=== PATIENT | female | born 2000 | race Caucasian/White ===

== ENCOUNTER 2024-03-18 23:46 | Emergency (ER) | payer OTHER ==
[2024-03-19 00:53] LABS: Anion Gap 8.9 mEq/L (5.0-15.0); Potassium 3.9 mEq/L (3.5-5.1); Troponin High Sensitivity 4.2 pg/mL (<58.9)
[2024-03-19 00:55] LABS: Absolute Basophils 0.1 K/uL (0-0.5); Absolute Eosinophils 0.5 K/uL (0-0.5); Absolute Lymphocytes (CBC) 1.7 K/uL (0.7-4.9); Absolute Neutrophil 6.5 K/uL (1.8-8.0); Basophils % 0.5 % (0-1.3); Hematocrit 38.5 % (36.0-45.0); Hemoglobin 12.9 g/dL (12.0-15.0); Lymphocytes % 17.9 % (15.3-44.8); MCH 29.1 pg (27.0-35.0); MCHC 33.6 g/dL (32.0-36.0); MCV 86.5 fL (80-100); MPV 7.6 fL (7.6-11.3); Monocytes % 9.9 % (3.3-12.3); Neutrophils % 66.7 % (41.7-73.7); Platelets 305 thou/uL (152-406); RBC Red Blood Cell Count 4.45 M/uL (3.86-4.86)
--- NOTE | 2024-03-19 01:15 | EDPHYS ---
Physician Documentation [facility] Name: Navin Valenzuela Age: 23 yrs Sex: Female : 2000 Arrival Date: 03/18/2024 Time: 23:46 Bed 8 Private MD: ED Physician Guillermo Moe HPI: 03/19 00:05 This 23 yrs old Female presents to ER via Ambulatory with complaints of Chest Pain - kb Hands tingling. 00:05 Pt is a 23 year old female who presents for chest pain that radiates to left shoulder kb and tingling to left hand that started 2 hours ago, as well as a sore throat that started 2 days ago. Denies shortness of breath, palpitation, fever, cough, congestion. . 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 - Infectious Disease History:: Denies. - Social history:: Smoking status: Reported history of juuling and/or vaping. ROS: 00:04 Constitutional: As per HPI kb Exam: 00:04 Constitutional: This is a well developed, well nourished patient who is awake, alert, kb and in no acute distress. Head/Face: Normocephalic, atraumatic. ENT: Moist Mucous membranes Cardiovascular: Regular rate Respiratory: Respirations even and unlabored. No increased work of breathing. Talking in full sentences Abdomen/GI: Soft, non-tender. No distention Skin: Warm, dry with normal turgor. Normal color. MS/ Extremity: Pulses equal, no cyanosis. Neurovascular intact. Full, normal range of motion. Neuro: Awake and alert, GCS 15, oriented to person, place, time, and situation. 00:04 ECG was reviewed by the Attending Physician. Vital Signs: 00:02 BP 127 / 81; Pulse 62; Resp 16; Temp 98(O); Pulse Ox 99% on R/A; Weight 72.57 kg; dd2 Height 5 ft. 3 in. ; Pain 4/10; 01:42 BP 121 / 77; Pulse 69; Resp 16; Temp 98.2; Pulse Ox 99% ; dd2 00:02 Body Mass Index 28.34 (72.57 kg, 160.02 cm) dd2 00:02 Pain Scale: Adult dd2 [place] Coma Score: 00:09 Eye Response: spontaneous(4). Motor Response: obeys commands(6). Verbal Response: dd2 oriented(5). Total: 15. MDM: 03/18 23:51 Medical Screening Exam initiated 03/19 00:05 Data reviewed: vital signs, nurses notes. kb 00:50 Transition of care: After a detail discussion of the patient's case, care is kb transferred to Guillermomayda Moe MD. 00:52 ED course: Patient signed out to me with pending lab work and radiographs. Patient ec2 arrives today with chest pain as well as concern for sore throat. . 01:04 ED course: Metabolic profile, CBC, troponin are all reassuring. Chest x-ray ec2 independently reviewed and interpreted by me, shows no acute thoracic process.. 01:14 ED course: Patient is positive for strep. Will start the patient antibiotics and ec2 discharged home. Turn precautions given.. 03/18 23:53 Order name: Basic Metabolic Panel; Complete Time: 01:04 kb 03/18 23:53 Order name: CBC with Diff; Complete Time: 01:04 kb 03/18 23:53 Order name: Troponin HS; Complete Time: 01:04 kb 03/18 23:58 Order name: Strep; Complete Time: 01:14 kb 03/18 23:53 Order name: XRAY Chest (1 view) kb 03/18 23:53 Order name: Cardiac monitoring; Complete Time: 00:16 kb 03/18 23:53 Order name: EKG - Nurse/Tech; Complete Time: 00:16 kb 03/18 23:53 Order name: IV Saline Lock; Complete Time: 00:16 kb 03/18 23:53 Order name: Labs collected and sent; Complete Time: 00:16 kb EC:04 Rate is 59 beats/min. Rhythm is regular. QRS [place] is Normal. UT interval is normal at kb 142 msec. QRS interval is normal at 76 msec. QT interval is normal at 407 msec. Administered Medications: 01:40 Drug: Amoxicillin-Clavulanate PO 875 mg PO once Route: PO; dd2 01:40 Follow up: Response: Medication Administered at Departure dd2 Disposition: 01:14 I agree with the assessment and plan of care. I reviewed the patient's care provided by 2 Advanced Practice Provider \T\ agree w/ the diagnosis \T\ care plan. I personally saw the pt \T\ performed a substantive portion of the visit, incldng all aspects of the (History/Exam/Medical Decision Making). Disposition Summary: 03/19/24 01:14 Discharge Ordered Notes: Location: Home ec2 Condition: Stable ec2 Diagnosis - Chest pain, unspecified ec2 - Streptococcal pharyngitis ec2 Followup: kb - With: Emergency Department - When: As needed - Reason: Worsening of condition Followup: kb - With: Private Physician - When: 2 - 3 days - Reason: Recheck today's complaints, Continuance of care, Re-evaluation by your physician Discharge Instructions: - Discharge Summary Sheet kb - Nonspecific Chest Pain, Adult, [id number] kb - Pharyngitis ec2 Forms: - Medication Reconciliation Form ec2 - Antibiotic Education ec2 - Prescription Opioid Use ec2 - Patient Portal Instructions ec2 - Leadership Thank You Letter ec2 Prescriptions: - Augmentin 875-125 mg Oral tablet - take 1 tablet ORAL route every 12 hours for 7 days; 14 tablet; Refills: 0, ec2 Product Selection Permitted Signatures: Dispatcher [employer] Elizabeth De Oliveira, WELLHEAD PUMPER-Karen MANN-Guillermo Gillette MD MD ec2 ART WALLACE RN RN dd2 Corrections: (The following items were deleted from the chart) 03/18 23:58 23:58 Group A Streptococcus Rapid [id number] ordered. ELOISE NAVAS
--- NOTE | 2024-03-19 01:15 | ER ---
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 Pt also c/o of hand tingling off and on x2 weeks and sore throat x2 days. Coronavirus screen: chills, sore throat. Ebola Screen: No symptoms or risks identified at this time. Initial Sepsis Screen: Does the patient meet any 2 criteria? No. Patient's initial sepsis screen is negative. Does the patient have a suspected source of infection? No. Patient's initial sepsis screen is negative. Risk Assessment: Do you want to hurt yourself or someone else? Patient reports no desire to harm self or others. Onset of symptoms is unknown. 00:02 Method Of Arrival: Ambulatory dd2 00:02 Acuity: MAYRA 3 dd2 Triage Assessment: 00:04 General: Appears in no apparent distress. Behavior is calm, cooperative, appropriate dd2 for age. Pain: Complains of pain in chest, throat Pain currently is 4 out of 10 on a pain scale. EENT: Throat is reddened Reports pain when swallowing. Neuro: No deficits noted. Level of Consciousness is awake, alert, obeys commands, Oriented to person, place, time, situation, Appropriate for age. 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 Rhythm is sinus rhythm. Respiratory: Airway is patent Respiratory effort is even, unlabored, Respiratory pattern is regular, symmetrical, Breath sounds are clear bilaterally. GI: No deficits noted. No signs and/or symptoms were reported involving the gastrointestinal system. Abdomen is non-distended, Abd is soft and non tender. : No deficits noted. No signs and/or symptoms were reported regarding the genitourinary system. Derm: No deficits noted. No signs and/or symptoms reported regarding the dermatologic system. Musculoskeletal: No deficits noted. No signs and/or symptoms reported regarding the musculoskeletal system. Circulation, motion, and sensation intact. Range of motion: intact in all extremities. 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 - Infectious Disease History:: Denies. - Social history:: Smoking status: Reported history of juuling and/or vaping. Screenin:09 [facility] ED Fall Risk Assessment (Adult) History of falling in the last 3 months, dd2 including since admission No falls in past 3 months (0 pts) Confusion or Disorientation No (0 pts) Intoxicated or Sedated No (0 pts) Impaired Gait No (0 pts) Mobility Assist Device Used No (0 pt) Altered Elimination No (0 pt) Score/Fall Risk Level 0 - 2 = Low Risk Oriented to surroundings, Maintained a safe environment, Educated pt \T\ family on fall prevention, incl call for assistance when getting out of bed, Assessed \T\ reinforced patient's understanding of fall precautions, Hourly rounding (assess needs \T\ fall precautionary measures) done. Abuse screen: Denies threats or abuse. Nutritional screening: No deficits noted. Tuberculosis screening: No symptoms or risk factors identified. Assessment: 00:09 Reassessment: SEE TRIAGE ASSESSMENT FOR FULL ASSESSMENT. dd2 01:44 Pain: Pain does not radiate. Pain began 2-3 days ago. dd2 Vital Signs: 00:02 BP 127 / 81; Pulse 62; Resp 16; Temp 98(O); Pulse Ox 99% on R/A; Weight 72.57 kg; dd2 Height 5 ft. 3 in. ; Pain 4/10; 01:42 BP 121 / 77; Pulse 69; Resp 16; Temp 98.2; Pulse Ox 99% ; dd2 00:02 Body Mass Index 28.34 (72.57 kg, 160.02 cm) dd2 00:02 Pain Scale: Adult dd2 [place] Coma Score: 00:09 Eye Response: spontaneous(4). Motor Response: obeys commands(6). Verbal Response: dd2 oriented(5). Total: 15. ED Course: 03/18 23:49 Patient arrived in ED. ra3 23:51 Elizabeth Yen FNP-C is [facility]. kb 23:51 Guillermo Moe MD is Attending Physician. kb 03/19 00:01 ART WALLACE RN is Primary Nurse. dd2 00:04 Triage completed. dd2 00:04 Arm band placed on right wrist. Patient placed in an exam room, on a stretcher, on dd2 pulse oximetry. 00:09 Patient has correct armband on for positive identification. Bed in low position. Call dd2 light in reach. Provided Education on: CALL LIGHT, LABS/RADIOLOGY, RESULT TIMES. Client placed on continuous cardiac and pulse oximetry monitoring. NIBP monitoring applied. Door closed. Noise minimized. Warm blanket given. Pillow given. Verbal reassurance given. 00:09 No provider procedures requiring assistance completed. EKG done, by ED staff, reviewed dd2 by Elizabeth RENTERIA. Patient maintains SpO2 saturation greater than 95% on room air. 00:16 Initial lab(s) drawn, by me, sent to lab. Inserted saline lock: 20 gauge in right dd2 antecubital area, using aseptic technique. Blood collected. Flushed with 10 mL NS. 00:16 Strep Sent. vk 00:37 XRAY Chest (1 view) In Process Unspecified. EDMS 01:42 IV discontinued, intact, bleeding controlled, No redness/swelling at site. Pressure dd2 dressing applied. Administered Medications: 01:40 Drug: Amoxicillin-Clavulanate PO 875 mg PO once Route: PO; dd2 01:40 Follow up: Response: Medication Administered at Departure dd2 Medication: 00:09 VIS not applicable for this client. dd2 Outcome: 01:14 Discharge ordered by . ec2 01:42 Discharged to home ambulatory, dd2 01:42 Condition: stable 01:42 Discharge instructions given to patient, Instructed on discharge instructions, follow up and referral plans. medication usage, Demonstrated understanding of instructions, follow-up care, medications, Prescriptions given X 1, 01:45 Patient left the ED. dd2 Signatures: Dispatcher [employer] EDMS Elizabeth Yen FNP-C FNP-Ckb Corral, Edwin, MD MD ec2 Abiola Valencia ra3 Genny Montenegro DIANA RN RN dd2
[2024-03-19] MEDS ORDERED: AMOX/K CLAV 875 MG TAB ONE (01:32)
[2024-03-19 01:50] VITALS: BP 121/77; TEMP 98.2; O2SAT 99
--- NOTE | 2024-03-19 03:39 | RAD REPORT ---
EXAM: XR Chest, 1 View CLINICAL HISTORY: The patient is 23 years old and is Female; CHEST PAIN TECHNIQUE: Frontal view of the chest. COMPARISON: No relevant prior studies available. FINDINGS: LUNGS: Unremarkable. No consolidation. PLEURAL SPACE: Unremarkable. No pneumothorax. HEART: Unremarkable. No cardiomegaly. MEDIASTINUM: Unremarkable. Normal mediastinal contour. BONES/JOINTS: Unremarkable. No acute fracture. UPPER ABDOMEN: Unremarkable as visualized. IMPRESSION: No acute cardiopulmonary process. Electronically signed by: Brisa Purcell MD 03/19/2024 02:19 AM CDT RP Due to temporary technical issues with the [employer] reporting system, reports are being rangel d by the in-house radiologist without review as a courtesy to ensure prompt reporting the interpreting radiologist is fully responsible for the content of the report. Transcribed Date/Time: 03/19/2024 3:39 AM
--- NOTE | 2024-03-19 14:47 | EKG ---
Test Date: 2024-03-19 Test Time: 00:00:30 Groover Runner: DEBBI MEASUREMENT RESULTS: Intervals: Rate: 59 [place]: 142 QRSD: 76 QT: 412 QTc: 407 [place]: P: 10 [place]: 142 QRS: 60 T: 37 INTERPRETIVE STATEMENTS: Sinus bradycardia Otherwise normal ECG No previous ECG available for comparison Electronically Signed On 03-19-24 14:45:35 CDT by Trung Hansen
== END 2024-03-19 01:45 | disposition home or self-care (01) ==
LOC: ER 23:46
DX: J02.0 Streptococcal pharyngitis (principal)
CPT/HCPCS: 36415; 71045; 80048; 84484; 85025; 87081; 93005; 99284